=== PATIENT | female | born 1960 | race Caucasian/White ===

== ENCOUNTER 2017-04-04 13:30 | Emergency (ER) | payer MEDICAID ==
[2017-04-04 13:31] VITALS: BMI 30.9
[2017-04-04] MEDS ORDERED: Sodium Chloride 0.9% 1,000 ML IV ONE ×3 (15:32→18:04)
[2017-04-04] MEDS ORDERED: Sodium Chloride 0.9% 1,000 ML ONE ×2 (15:56→17:08)
[2017-04-04 16:02] LABS: BASO % 0.4 % (0.0-2.0); EOS # 0.1 K/uL (0.0-0.7); HEMATOCRIT 47.7 % (34.0-47.0); LYMPH # 6.4 K/uL (1.0-4.3); MEAN CORPUSCULAR HEMOGLOBIN 27.3 pg (27.0-31.0); MEAN CORPUSCULAR HGB CONC 30.6 g/dL (33.0-37.0); MONO # 0.6 K/uL (0.0-0.8); MONO % 5.8 % (0.0-10.0); NRBC % 0.2 % (0.0-2.0); RED CELL DISTRIBUTION WIDTH 14.2 % (11.5-14.5)
[2017-04-04 16:11] LABS: CHLORIDE 100 mmol/L (98-107)
[2017-04-04 16:12] LABS: MEAN CELL VOLUME 89.2 fL (81.0-99.0); POTASSIUM 3.8 mmol/L (3.6-5.2); SODIUM 135 mmol/L (132-148); WHITE BLOOD COUNT 10.9 K/uL (4.8-10.8)
[2017-04-04 16:14] LABS: ALB/GLOB RATIO 1.1 (1.0-2.1); ALKALINE PHOSPHATASE 154 U/L (38-126); ALT/SGPT 45 U/L (9-52); AST/SGOT 29 U/L (14-36); BILIRUBIN,TOTAL 0.5 mg/dL (0.2-1.3); BLOOD UREA NITROGEN 24 mg/dL (7-17); CALCIUM 9.2 mg/dl (8.6-10.4); CARBON DIOXIDE 17 mmol/L (22-30); GFR AFRICAN-AMERICAN > 60
[2017-04-04 16:17] LABS: GLUCOSE,RANDOM 620 mg/dL (65-105)
[2017-04-04 16:48] LABS: VENOUS BLOOD GAS BASE EXCESS -5.6 mmol/L (0.0-2.0); VENOUS BLOOD GAS PCO2 35 mmHg (40-60); VENOUS BLOOD PH 7.35 (7.32-7.43)
[2017-04-04] MEDS ORDERED: (Novolin R) Insulin Human Regular 100 units/ml vial IV ONE (16:53)
[2017-04-04] MEDS ORDERED: (Novolin R) Insulin Human Regular 100 units/ml vial ONE (17:07)
[2017-04-04 17:49] VITALS: PULSE 94
--- NOTE | 2017-04-04 18:21 | C.PDOC ---
History Of Present Illness 56 y/o female presents to ED with c/o rash and itchiness that started just prior to arrival. Patient states that normally she takes her chronic medication every 30 mins, but today she took all of them at the same time. She notes that she developed redness, skin and throat itchiness within 2 minutes after taking medications. Patient took 2 Benadryl prior to arrival. Denies shortness of breath, throat or mouth swelling, fever, chills, or other complaints. History obtained via electronics commodity manager. Time Seen by Provider: 04/04/17 15:12 Chief Complaint (Nursing): Allergic Reaction History Per: Patient, Lead Caregiver History/Exam Limitations: language barrier Onset/Duration Of Symptoms: Hrs Current Symptoms Are (Timing): Still Present Possible Cause: Medication Associated Symptoms: Skin Rash, Itching, Redness. denies: Swelling, Trouble Swallowing, Chest Pain Home/EMS Treatment: Benadryl Recent travel outside of the [place]: No Past Medical History Reviewed: Historical Data, Nursing Documentation, Vital Signs Vital Signs: Last Vital Signs Temp 98.3 F 04/04/17 20:31 Pulse 94 H 04/04/17 20:31 Resp 22 04/04/17 20:31 BP 135/90 04/04/17 20:31 Pulse Ox 95 04/04/17 20:31 - Medical History PMH: Anxiety, Arthritis, Asthma, Back Problems, Bronchitis, Diabetes, HTN, Hypercholesterolemia, Osteoporosis, Peripheral Edema, Sleep Apnea Denies: Chronic Kidney Disease Surgical History: Back Surgery, Endoscopy - [facility] Procedures CYSTOSCOPY NEC (05/15/14) ENDOSC POLYPECTOMY OF LG INTEST (07/08/14) IMPLANT OR REPLACEMENT OF PERIPHERAL NEUROSTIMULATOR LEAD(S) (04/02/15) INJECT/INFUSE NEC (07/06/15) OTH LAPAROSCOPIC REP OTH HRN OF ANTER ABD WALL W GRF OR PROS (06/14/14) OTHER & OPEN REPAIR UMBILICAL HERNIA W GRAFT OR PROSTHESIS (01/29/14) URETHRAL DILATION (05/15/14) Family History: States: Unknown Family Hx, Diabetes - Social History Hx Tobacco Use: No Hx Alcohol Use: No Hx Substance Use: No - Immunization History Hx Tetanus Toxoid Vaccination: Yes Hx Influenza Vaccination: Yes Hx Pneumococcal Vaccination: Yes Review Of Systems Except As Marked, All Systems Reviewed And Found Negative. Constitutional: Negative for: Fever, Chills ENT: Positive for: Other (throat itchiness). Negative for: Mouth Swelling, Throat Pain, Throat Swelling Cardiovascular: Negative for: Chest Pain Respiratory: Negative for: Cough, Shortness of Breath Gastrointestinal: Negative for: Nausea, Vomiting, Abdominal Pain Skin: Positive for: Rash Neurological: Negative for: Weakness, Numbness, Dizziness Physical Exam - Physical Exam Appears: Non-toxic, Other (appears anxious, scratching diffusely) Skin: Warm, Dry, Rash (diffuse erythema) Head: Atraumatic, Normacephalic Eye(s): bilateral: Normal Inspection, EOMI Nose: Normal Oral Mucosa: Moist Tongue: No Swelling Lips: No Swelling, Other (dry) Gingiva: Normal Appearing Throat: Normal, No Erythema, No Exudate, No Drooling Neck: Normal ROM, Supple Chest: Symmetrical Cardiovascular: Rhythm Regular Respiratory: Normal Breath Sounds, No Rales, No Rhonchi, No Wheezing Gastrointestinal/Abdominal: Soft, No Tenderness, No Guarding, No Rebound Back: Normal Inspection Extremity: Normal ROM, Capillary Refill (< 2 sec.) Neurological/Psych: Oriented x3, Normal Speech, Normal Cognition ED Course And Treatment - Laboratory Results Result Diagrams: 04/04/17 15:55 04/04/17 15:55 O2 Sat by Pulse Oximetry: 96 (RA) Pulse Ox Interpretation: Normal Progress Note: Patient noted to have hyperglycemia. Pt notes for the last few days she has been drinking a lot of fruit juice. Treated with Pepcid, solumedrol , and IVFs. Novolin given. Patient states she does not want to stay for admission and requests to be discharged home. On re-eval, the patient notes itching has resolved as has the rash. Lungs remain CTA with no intraoral swelling. Discussed concern for hyperglycemia. Pt notes she will monitor her sugar more carefully and return if symptom spersist or worsen. Hr Recruiter used to ensure understanding. Case discussed with Dr Bell, aware of ama and agree dupon treatment with steriods secondary to hyperglycemia. Medical Decision Making Medical Decision Making: The patient declines admission, and wishes to leave the Emergency Department. ~ This action is against my medical advice to the patient and the decision was made with informed refusal. The patient was told that admission is necessary and a full explanation of the rationale was given. ~The risks of leaving were explained to the patient and include, but are not limited to, worsening of known or currently unknown conditions, permanent disability and from undiagnosed or untreated conditions ~The patient has the capacity to make this informed decision and understands the clinical situation and my explanation of the risks of leaving. The patient voluntarily accepts these risks, and a signed AMA form documenting our conversation was obtained. The patient was given the opportunity to ask questions and reconsider. ~The patient was encouraged to return to the Emergency Department at any time for further care Disposition - Disposition Disposition: HOME/ ROUTINE Disposition Time: 18:29 Condition: STABLE Additional Instructions: Vaya a moon mdico o la clnica en 2-5 doan sin falta, para mas evaluacin. [place] los medicamentos adalberto indicado. Volver a la luis de emergencia en cualquier momento si los sntomas persisten o empeoran. Prescriptions: DiphenhydrAMINE [Benadryl] 25 mg PO Q6 #20 cap Instructions: Urticaria (ED), Diabetic Hyperglycemia (ED) Forms: (AMA) Informed Refusal Print Language: CROATIAN - Clinical Impression Clinical Impression: Hyperglycemia, Allergic urticaria - PA / BUNCH TRIMMER MOLD / Resident Statement MD/DO has reviewed & agrees with the documentation as recorded. - Scribe Statement The provider has reviewed the documentation as recorded by the Sarah Tadeo All medical record entries made by the Jamesonibmaicol were at my direction and personally dictated by me. I have reviewed the chart and agree that the record accurately reflects my personal performance of the history, physical exam, medical decision making, and the department course for this patient. I have also personally directed, reviewed, and agree with the discharge instructions and disposition.
[2017-04-04 20:41] VITALS: BP 135/90; RESP 22; TEMP 98.3
[2017-04-07 20:49] VITALS: O2SAT 96
== END 2017-04-04 20:30 | disposition home or self-care (01) ==
LOC: C.ER 13:30
DX: L50.0 Allergic urticaria (principal); R73.9 Hyperglycemia, unspecified
CPT/HCPCS: 80053; 82009; 82803; 82948; 85025; 96361; 96374; 96375; 99285; J2930; J7040